=== PATIENT | female | born 1940 | race Caucasian/White ===

== ENCOUNTER 2023-10-11 10:20 | Inpatient (IN) | payer MEDICARE ==
--- NOTE | 2023-10-11 10:55 | ED ---
Fall HPI - General Chief Complaint: Fall Stated Complaint: fall-left ankle injury Time Seen by Provider: 10/11/23 10:55 Source: patient, EMS Mode of arrival: EMS Limitations: physical limitation - History of Present Illness Initial Comments: 83-year-old female presented to the ER via EMS with a chief complaint of left lower extremity injury. Patient states yesterday around 11 AM she was getting up from a chair when her legs gave out on her. She states he was wearing old shoes and believes they may have not had a good travel professional on the ground. Patient lisbeth k she twisted her leg and is now reporting swelling and pain of left ankle and knee. Denies head injury, loss of consciousness or blood thinner use. She denies paresthesias of LLE. She states that extremely painful with flexion of the knee. She denies any dizziness, lightheadedness, chest pain or shortness of breath prior to fall. No other injuries or complaints. - Related Data Home Medications Medication Instructions Recorded Confirmed Cholecalciferol (Vitamin D3) 50 mcg PO DAILY 10/11/23 10/11/23 [Vitamin D3 (50 Mcg = 2000 Iu)] Allergies Allergy/AdvReac Type Severity Reaction Status Date / Time No Known Allergies Allergy Verified 10/11/23 13:25 Review of Systems ROS Statement: Those systems with pertinent positive or pertinent negative responses have been documented in the HPI. ROS Other: All systems not noted in ROS Statement are negative. Past Medical History Past Medical History: No Reported History History of Any Multi-Drug Resistant Organisms: None Reported Past Surgical History: Orthopedic Surgery Past Psychological History: No Psychological Hx Reported Smoking Status: Former smoker Past Alcohol Use History: Daily Past Drug Use History: None Reported General Exam General appearance: alert, in no apparent distress Respiratory exam: Present: normal lung sounds bilaterally. Absent: respiratory distress, wheezes, rales, rhonchi, stridor Cardiovascular Exam: Present: regular rate, normal rhythm, normal heart sounds. Absent: systolic murmur, diastolic murmur, rubs, gallop, clicks Extremities exam: Present: tenderness (Left knee and ankle. Nonpitting edema to foot/ankle and knee. Patient has limited range of motion due to pain. No bruising or wounds present. 2+ bilateral DP pulse. sensation intact) Neurological exam: Present: alert, oriented X3, CN II-XII intact Skin exam: Present: warm, dry, intact, normal color. Absent: rash Course Vital Signs 10/11/23 10/11/23 10:21 13:04 Temperature 98.2 F Pulse Rate 85 79 Respiratory 16 16 Rate Blood Pressure 147/66 154/82 O2 Sat by Pulse 97 97 Oximetry - Reevaluation(s) Reevaluation #1: 10/11/23 14:[address] knee. 10/11/23 15:48 Case discussed with on-call orthopedic, Dr. Vargas, who advised on admission and surgical intervention on 10-13-2023. Reevaluation #2: 10/11/23 15:48 Case discussed with [facility], Dr. Sanz, for medical clearance. Medicine on consult. Medical Decision Making - Medical Decision Making Was pt. sent in by a medical professional or institution (, PA, HISTOTECHNICIAN, urgent care, hospital, or group home...) When possible be specific @ -No Did you speak to anyone other than the patient for history (EMS, parent, family, police, friend...)? What history was obtained from this source @ -No Did you review nursing and triage notes (agree or disagree)? Why? @ -I reviewed and agree with nursing and triage notes Were old charts reviewed (outside hosp., previous admission, EMS record, old EKG, old radiological studies, urgent care reports/EKG's, group home records)? Report findings @ -No old charts were reviewed Differential Diagnosis (chest pain, altered mental status, abdominal pain women, abdominal pain men, vaginal bleeding, weakness, fever, dyspnea, syncope, headache, dizziness, GI bleed, back pain, seizure, CVA, palpatations, mental health, musculoskeletal)? @ -Differential Musculoskeletal: Muscular strain, contusion, ligament sprain, fracture, arthritis, septic arthritis, bursitis, cellulitis, muscle spasm, nerve compression, DVT, arterial occlusion, herpes zoster, electrolyte abnormality, tumor.... This is not meant to be in all inclusive list EKG interpreted by me (3pts min.). @ -None X-rays interpreted by me (1pt min.). @ -Left knee x-ray interpreted by me significant for periprosthetic distal femur fracture. There is also proximal fibula fracture. Left hip and ankle x- ray interpreted me negative for acute process. CT interpreted by me (1pt min.). @ -CT left knee significant for an acute transverse fracture through the distal femoral metaphysis with posterior displacement. Acute comminuted fracture of proximal fibular neck. U/S interpreted by me (1pt. min.). @ -None done What testing was considered but not performed or refused? (CT, X-rays, U/S, labs)? Why? @ -None What meds were considered but not given or refused? Why? @ -None Did you discuss the management of the patient with other professionals (professionals i.e. , PA, HISTOTECHNICIAN, lab, RT, psych nurse, social work supervisor, trucking contractor, teacher, workplace rehabilitation officer, lining caser)? Give summary @ -Yes, case discussed with Dr. Vargas, on-call orthopedic who advised on surgical intervention and admission. Case also discussed with Dr. Sanz, [facility], for medical consult. Was smoking cessation discussed for >3mins.? @ -No Was critical care preformed (if so, how long)? @ -No Were there social determinants of health that impacted care today? How? (Homelessness, low income, unemployed, alcoholism, drug addiction, transportation, low edu. Level, literacy, decrease access to med. care, custodial, rehab)? @ -No Was there de-escalation of care discussed even if they declined (Discuss DNR or withdrawal of care, Hospice)? DNR status @ -No What co-morbidities impacted this encounter? (DM, HTN, Smoking, COPD, CAD, Cancer, CVA, ARF, Chemo, Hep., AIDS, mental health diagnosis, sleep apnea, morbid obesity)? @ -None Was patient admitted / discharged? Hospital course, mention meds given and route, prescriptions, significant lab abnormalities, going to OR and other pertinent info. @ -Admitted. 83-year-old female presented to the ER with a chief complaint of a fall. History and physical exam completed. Vitals stable. Patient no signs of acute distress and nontoxic-appearing. Bilateral lower extremities neurovascular intact. No acute neurological findings on exam. Tenderness to left knee with effusion present. Xrays will be obtained to rule out fracture. Left knee x-ray interpreted by me significant for a distal left femoral fracture. There is also a proximal fibular neck fracture. Left hip AP pelvis and left ankle x-ray interpreted by me negative for acute process. Case discussed with on-call orthopedic, Dr. Vargas, who advised on CT. CT left knee significant transverse fracture through the distal femoral metaphysis with posterior displacement. Acute comminuted fracture along the proximal fibular neck. CT results with discussed with Dr. Vargas who advised on admission and surgical intervention on 10-13-2023. Medicine will be on consult. Case also discussed with Dr. Sanz, [facility], for medicine consult. Patient received IV fluids, Dilaudid and Zofran with improvement of pain in the ER. Results discussed with patient, all questions answered. Patient agreeable for admission. Case discussed with ED attending, Dr. Evans. Undiagnosed new problem with uncertain prognosis? @ -No Drug Therapy requiring intensive monitoring for toxicity (Heparin, Nitro, Insulin, Cardizem)? @ -No Were any procedures done? @ -No Diagnosis/symptom? @ -Periprosthetic distal femur fracture/fibular fracture Acute, or Chronic, or Acute on Chronic? @ -Acute Uncomplicated (without systemic symptoms) or Complicated (systemic symptoms)? @ -Complicated Side effects of treatment? @ -No Exacerbation, Progression, or Severe Exacerbation? @ -No Poses a threat to life or bodily function? How? (Chest pain, [place], [place], pneumonia, PE, COPD, DKA, ARF, appy, cholecystitis, CVA, Diverticulitis, Homicidal, Suicidal, threat to staff... and all critical care pts) @ -No - Radiology Data Radiology results: report reviewed, image reviewed Disposition Clinical Impression: Femoral distal fracture, Fracture, fibula, proximal Disposition: ADMITTED IP TO THIS [facility] Condition: Stable Referrals: None,Stated [Primary Care Provider] - 1-2 days Time of Disposition: 15:48
--- NOTE | 2023-10-11 12:05 | XR ---
EXAMINATION TYPE: XR knee complete LT DATE OF EXAM: 10/11/2023 CLINICAL HISTORY: pain TECHNIQUE: Three views of the left knee are obtained. COMPARISON: None. FINDINGS: Total knee arthroplasty is noted to be in place. There is fracture at the distal left femor al diarrhea metaphyseal region. There is also fracture noted to involve the proximal fibular neck wit h mild comminution suggested. IMPRESSION: Fractures as above.
--- NOTE | 2023-10-11 12:06 | XR ---
EXAMINATION TYPE: XR ankle complete LT DATE OF EXAM: 10/11/2023 COMPARISON: NONE HISTORY: Pain TECHNIQUE: 3 views of the left ankle are submitted for evaluation. FINDINGS: There is no evidence for fracture or dislocation. Ankle mortise is intact. Soft tissue swel ling noted. IMPRESSION: 1. No evidence for acute fracture.
--- NOTE | 2023-10-11 12:07 | XR ---
EXAMINATION TYPE: XR Hip LT and AP Pelvis DATE OF EXAM: 10/11/2023 CLINICAL HISTORY: pain TECHNIQUE: AP and frogleg views of the left hip are obtained. Single view pelvis also obtained. COMPARISON: None. FINDINGS: There is no acute fracture/dislocation evident. The joint space appears within normal li mits. The overlying soft tissue appears unremarkable. IMPRESSION: 1. There is no acute fracture or dislocation.ICD 10 NO FRACTURE, INITIAL EVALUATION
[2023-10-11] MEDS: ONDANSETRON 4 MG/2 ML VIAL IVP STA (13:07)
[2023-10-11] MEDS: HYDROmorphone 0.5 MG/0.5 ML SYRINGE IVP STA (13:10)
--- NOTE | 2023-10-11 15:01 | CT ---
EXAMINATION TYPE: CT knee LT wo con DATE OF EXAM: 10/11/2023 COMPARISON: Left knee x-ray earlier today. HISTORY: fell today CT DLP: 267.8 mGycm Automated exposure control for dose reduction was used. FINDINGS: Metallic hardware from total left knee arthroplasty is identified causing streak artifact making eval uation suboptimal. Seen best on sagittal views there is acute transverse fracture through the distal femoral metaphysis just above the metallic prosthesis with posterior displacement of the distal fract ure fragment. There is moderate sized suprapatellar joint effusion with fat/fluid level seen best on axial images There is acute comminuted fracture through the proximal fibular neck. Adjacent tibia is intact. IMPRESSION: As above. Acute fractures are confirmed.
[2023-10-11] MEDS ORDERED: ONDANSETRON 4 MG/2 ML VIAL IVP PRN (15:38)
[2023-10-11] MEDS ORDERED: HYDROmorphone 0.5 MG/0.5 ML SYRINGE IVP PRN (15:38)
[2023-10-11] MEDS ORDERED: NALOXONE 0.4 MG/ML 1 ML VIAL IV PRN (15:38)
[2023-10-11] MEDS: SODIUM CHLORIDE 0.9% 1,000 ML IV SCH (16:49)
[2023-10-11 21:48] LABS: Basophils % (A) 1 %; Eosinophils # (A) 0.2 k/uL (0-0.7); Eosinophils % (A) 2 %; HCT 38.6 % (34.0-46.0); HGB 12.4 gm/dL (11.4-16.0); Lymphocytes # (A) 0.6 k/uL (1.0-4.8); Lymphocytes % (A) 8 %; MCH 31.9 pg (25.0-35.0); MCHC 32.1 g/dL (31.0-37.0); MCV 99.5 fL (80.0-100.0); Mean Platelet Volume 8.1; Monocytes # (A) 0.6 k/uL (0-1.0); Monocytes % (A) 8 %; Neutrophils % (A) 80 %; Platelet Count 193 k/uL (150-450); RBC 3.88 m/uL (3.80-5.40); RDW 13.1 % (11.5-15.5); WBC 7.4 k/uL (3.8-10.6)
[2023-10-11 21:59] LABS: ALT 14 U/L (4-34); AST 22 U/L (14-36); African American GFR (CKD) 84 (>60 ml/min/1.73 sqM); Albumin 3.3 g/dL (3.5-5.0); Albumin/Globulin Ratio 1.5; Alkaline Phosphatase 77 U/L (38-126); Anion Gap 2 mmol/L; Blood Urea Nitrogen 14 mg/dL (7-17); Calcium 8.5 mg/dL (8.4-10.2); Carbon Dioxide 26 mmol/L (22-30); Chloride 108 mmol/L (98-107); Globulin 2.2 g/dL; Glucose 158 mg/dL (74-99); Non-African American GFR(CKD) 73 (>60 ml/min/1.73 sqM); Potassium 3.9 mmol/L (3.5-5.1); Sodium 136 mmol/L (137-145); Total Bilirubin 0.9 mg/dL (0.2-1.3); Total Protein 5.5 g/dL (6.3-8.2)
--- NOTE | 2023-10-12 00:04 | P.CONS ---
History of Present Illness - Reason for Consult Consult date: 10/11/23 Medical management - Chief Complaint Left knee pain, fall - History of Present Illness Patient is a 83-year-old female without significant past medical history except prior history of smoking presents to ER with complaints of fall and left ankle injury. Patient states that around 11 AM she was getting up from the chair at the dining table and got caught up in the runner rug and fell on her left side. Patient was wearing old shoes and believes they not have good drip. She thinks she twisted her leg and having swelling of the left ankle and knee. She has been having ambulation and flexion of the knee. Denies any recent illnesses or sick contacts. No recent travel. No nausea vomiting abdominal pain or diarrhea. Denies any prior history of coronary artery disease or prior history of stroke. X-ray of the knee showed total knee arthroplasty is noted to be in place. There is fracture of the distal left femoral diaphysis metaphyseal region. There is also fracture noted to involve the proximal fibular neck with mild comminution suggested. X-ray of the pelvis showed no acute fracture or dislocation. X-ray of the ankle showed no evidence for acute fracture. CT of the knee showed metallic hardware from total knee arthroplasty is identified causing streak artifact making evaluation suboptimal. Acute transverse fracture through the distal femoral metaphysis just above the metabol ic process with posterior displacement of the distal fracture fragment. There is moderate-sized suprapatellar joint effusion with fat fluid level. There is a acute comminuted fracture through the proximal fibular neck. Adjacent TBI is intact. Laboratory data showed sodium 136 potassium 3.9 chloride 108, bicarb 26 BUN 14 and creatinine 0.76 and blood sugar 158. Albumin 3.3 and TSH 0.71 5 Review of Systems Constitutional: Patient denies any fever or chills . No generalized weakness or weight loss. Abdomen: Patient denied nausea vomiting and diarrhea and abdominal pain. Cardiovascular: Patient denies any chest pain or short of breath no palpitations. Respiratory: patient denied any cough or sputum production. No shortness of breath Neurologic: Patient denied any numbness or tingling. no headache. Musculoskeletal: Patient denies any complaints of joint swelling or deformity. Left knee pain and swelling Skin: Negative Psychiatric: Negative Endocrine: No heat or cold intolerance. No recent weight gain. Genitourinary: No dysuria or hematuria. All other 14 point ROS negative except the above Past Medical History Past Medical History: No Reported History History of Any Multi-Drug Resistant Organisms: None Reported Past Surgical History: Orthopedic Surgery Past Psychological History: No Psychological Hx Reported Smoking Status: Former smoker Past Alcohol Use History: Daily Past Drug Use History: None Reported Medications and Allergies Home Medications Medication Instructions Recorded Confirmed Type Cholecalciferol (Vitamin D3) 50 mcg PO DAILY 10/11/23 10/11/23 History [Vitamin D3 (50 Mcg = 2000 Iu)] Allergies Allergy/AdvReac Type Severity Reaction Status Date / Time No Known Allergies Allergy Verified 10/11/23 13:25 Physical Exam Vitals: Vital Signs Temp Pulse Resp BP Pulse Ox 10/11/23 17:54 88 16 128/80 97 10/11/23 16:47 85 16 127/77 96 10/11/23 13:04 79 16 154/82 97 10/11/23 10:21 98.2 F 85 16 147/66 97 Intake and Output 10/11/23 10/11/23 10/11/23 06:59 14:59 22:59 Other: Weight 81.647 kg 81.647 kg PHYSICAL EXAMINATION: Patient is lying in the bed comfortably, no acute distress, awake alert and oriented.. HEENT: Normocephalic. Neck is supple. Pupils reactive. Nostrils clear. Oral cavity is moist. Neck reveals no JVD, carotid bruits, or thyromegaly. CHEST EXAMINATION: Trachea is central. Symmetrical expansion. Lung de la o clear to auscultation and percussion. CARDIAC: Normal S1, S2 with no gallops. No murmurs ABDOMEN: Soft. Bowel sounds normal. No organomegaly. No abdominal bruits. Extremities: reveal no edema. No clubbing or cyanosis Neurologically awake, alert, oriented x3 with well-coordinated movements. No focal deficits noted Skin: No rash or skin lesions. Psychiatric: Coperative. Nonsuicidal Musculoskeletal: Left knee swelling and decreased range of motion. Results CBC & Chem 7: 10/11/23 21:30 10/11/23 21:30 Assessment and Plan Assessment: Acute transverse fracture through distal femoral metaphysis just above the metallic process. Acute comminuted fracture through the proximal fibular neck. Suprapatellar joint effusion Status post mechanical fall Hypovolemic hyponatremia Prior history of smoking History of left total knee arthroplasty DVT prophylaxis GI prophylaxis as per primary team Plan: Patient will be continued on pain management, bowel regimen and encourage incentive spirometry. Continue gentle IV hydration and follow-up repeat BMP. Patient does not have any prior history of coronary disease, CKD or history of CVA. Currently patient denies any chest pain or shortness of breath. Patient is at low risk for orthopedic surgery. Will continue to follow closely and further recommendations based on the clinical course. Thank you for your consult.
[2023-10-12 11:07] LABS: BUN/Creat Ratio 14.43 Ratio (12.00-20.00); Blood Urea Nitrogen 10.1 mg/dL (9.0-27.0); Calcium 8.6 mg/dL (8.7-10.3); Chloride 105 mmol/L (96-109); Glucose 147 mg/dL (70-110); Potassium 4.2 mmol/L (3.5-5.5); Sodium 139 mmol/L (135-145)
[2023-10-12 11:42] LABS: Partial Thromboplastin Time 25.3 sec (22.0-30.0); Prothrombin Time 10.5 sec (10.0-12.5)
--- NOTE | 2023-10-12 11:53 | P.HPOR ---
History of Present Illness H&P Date: 10/12/23 The patient is an 83 year old female who presented to our ED yesterday after a ground level fall 2 days ago. She reports tripping and injuring her left leg. She was unable to ambulate. She presented to our ED and has found to have a periprosthetic distal femur fracture and proximal fibula fracture. She lives with her partner. She had bilateral knee replacements done in the remote past in [place]. She lives 6 months of the year in [place]. Past Medical History Past Medical History: No Reported History History of Any Multi-Drug Resistant Organisms: None Reported Past Surgical History: Orthopedic Surgery Past Psychological History: No Psychological Hx Reported Smoking Status: Former smoker Past Alcohol Use History: Daily Past Drug Use History: None Reported Medications and Allergies Home Medications Medication Instructions Recorded Confirmed Type Cholecalciferol (Vitamin D3) 50 mcg PO DAILY 10/11/23 10/11/23 History [Vitamin D3 (50 Mcg = 2000 Iu)] Allergies Allergy/AdvReac Type Severity Reaction Status Date / Time No Known Allergies Allergy Verified 10/11/23 13:25 Physical Examination Resting comfortably in bed. No apparent distress. Her head is NC/AT. She demonstrates non-labored breathing with symmetric chest expansion. Her b/l UE and right LE are without deformities. A focused exam of the left leg was conducted. There is an obvious deformity of her left knee, but no open wounds. There is a well healed anterior knee incision from prior TKA. Her thigh and calf are soft. She has a palpable DP and PT pulse. Results Xrays and CT scan of the left knee show a low-periprosthetic femur fracture and proximal fibula fracture. There is limited bone around the prosthetic. There do not appear to be any fractures around the tibial implant. The patient has very poor bone quality. - Labs Labs: Abnormal Lab Results - Last 24 Hours (Table) 10/11/23 10/11/23 10/12/23 Range/Units 21:30 21:30 07:57 Lymphocytes # 0.6 L (1.0-4.8) k/uL Sodium 136 L (137-145) mmol/L Chloride 108 H (98-107) mmol/L Glucose 158 H 147 H (74-99) mg/dL Calcium 8.6 L (8.7-10.3) mg/dL Total Protein 5.5 L (6.3-8.2) g/dL Albumin 3.3 L (3.5-5.0) g/dL H & H 10/11/23 Range/Units 21:30 Hgb 12.4 (11.4-16.0) gm/dL Hct 38.6 (34.0-46.0) % Result Diagrams: 10/11/23 21:30 10/12/23 07:57 Assessment and Plan Assessment: Left periprosthetic distal femur fracture Plan: I met with the patient to discuss treatment options this morning. Given her age, poor bone quality and very low fracture with limited bone stock on the femoral i mplant, I recommended a revision TKA with a distal femoral replacing hinge. We discussed the procedure at length. She understands the potential risks and that she is at an elevated risk of having a complication due to her age and poor bone quality. We will plan on surgery later this afternoon. She is to remain NPO and on bedrest until surgery. Time with Patient: Greater than 30
[2023-10-12] MEDS: CYANOCOBALAMIN 1,000 MCG/ML 1 ML VIAL IM ONE (12:52)
[2023-10-12] MEDS: IV FLUID CONTINUATION 1,000 ML IV ONE (13:42)
[2023-10-12] MEDS: LACTATED RINGERS 1,000 ML BAG IV STA (13:42)
[2023-10-12] MEDS: DEXAMETHASONE SOD PHOSPHATE 4 MG/ML 1 ML VIAL IVP STA (14:05)
[2023-10-12] MEDS: ONDANSETRON 4 MG/2 ML VIAL IVP STA (14:05)
[2023-10-12] MEDS ORDERED: TRANEXAMIC 1,000 MG/100ML-NACL 1,000 MG in SALINE 1 100ML.BAG IVPB PRN (14:35)
[2023-10-12] MEDS ORDERED: NEOSTIGMINE 1 MG/ML 10 ML VIAL ONE (15:00)
[2023-10-12] MEDS ORDERED: GLYCOPYRROLATE 0.2 MG/ML 2 ML VIAL ONE (15:00)
[2023-10-12] MEDS ORDERED: ROCURONIUM 10 MG/ML (5 ML VIAL) IV ONE (15:00)
[2023-10-12] MEDS ORDERED: fentaNYL (PF) 50 MCG/ML 2 ML AMP ONE (15:00)
[2023-10-12] MEDS ORDERED: LIDOCAINE 1% INJ 10MG/ML (20 ML MDV) ONE (15:00)
[2023-10-12] MEDS ORDERED: PROPOFOL 10 MG/ML 20 ML VIAL IV ONE (15:00)
[2023-10-12] MEDS ORDERED: SUCCINYLCHOLINE CHLORIDE 200 MG/10 ML VIAL IV ONE (15:00)
[2023-10-12] MEDS ORDERED: PHENYLEPHRINE 10 MG/ML VIAL ONE (15:00)
[2023-10-12] MEDS: VANCOMYCIN 1,000 MG VIAL MISCELLANE ONE (17:47)
[2023-10-12] MEDS: BUPIVACAINE (PF) 0.5% 30 ML VIAL SQ ONE (17:50)
[2023-10-12] MEDS ORDERED: NALOXONE 0.4 MG/ML 1 ML VIAL IV PRN (18:50)
[2023-10-12] MEDS ORDERED: ONDANSETRON 4 MG/2 ML VIAL IVP PRN (18:50)
[2023-10-12] MEDS ORDERED: MAGNESIUM HYDROXIDE 2,400 MG/30 ML CUP PO PRN (18:50)
[2023-10-12] MEDS ORDERED: HYDROcodone/APAP 10-325MG 1 EACH TAB PO PRN (18:50)
[2023-10-12] MEDS ORDERED: hydrOXYzine pamoate 25 MG CAP PO PRN (18:50)
[2023-10-12] MEDS ORDERED: NA PHOS,M-B/NA PHOS,DI-BA 133 ML ENEMA RECTAL PRN (18:50)
[2023-10-12] MEDS ORDERED: HYDROmorphone 0.5 MG/0.5 ML SYRINGE IVP PRN ×3 (18:50)
[2023-10-12] MEDS ORDERED: bisacodyL 10 MG SUPP RECTAL PRN (18:50)
--- NOTE | 2023-10-12 19:10 | P.OP ---
Date of Procedure: 10/12/23 Preoperative Diagnosis: 1. Comminuted left distal periprosthetic femur fracture 2. Left proximal fibula fracture 3. Osteoporosis Postoperative Diagnosis: 1. Comminuted left periprosthetic distal femur fracture with loose femoral component 2. left proximal fibula fracture 3. Osteoporosis Procedure(s) Performed: 1. Left revision total knee replacement (distal femoral replacing hinge) for treatment of unsalvageable periprosthetic distal femur fracture 2. Application of negative pressure incisional wound VAC, left knee, less than 50 cm, incision measuring 15 cm Modifier 22 for increased procedural complexity: Justification: This operation required significantly more time, work, and procedural complexity than a standard primary or revision total joint arthroplasty. Specifically the prior traumatic changes and or surgical procedure left a significantly altered surgical field with resultant scar tissue, adhesions, and altered anatomy that required a longer and more difficult and complex surgical dissection. This patient required: Extensile exposure requiring meticulous and extensive debridement due to prior failed surgery and contractures Technically demanding removal of prior hardware Significantly prolonged operative time All of the above result in a physically and mentally challenging operative procedure that in my professional opinion necessitates a 30% increase above standard the schedule Implants: 1. [place] GMRS distal femoral replacement with 13x80 cemented stem 2. Michelle GMRS SM-2 tibial baseplate with cemented stem 3. Michelle MRH 10-mm tibial insert Anesthesia: MITALI Surgeon: Moris Vargas [employer] Receiver #1: Nuno Carter Estimated Blood Loss (ml): 200 IV fluids (ml): 800 Urine output (ml): 100 Pathology: other Condition: stable Disposition: PACU Indications for Procedure: The patient is a very pleasant relatively healthy 83-year-old female who sustained a ground-level fall 2 days ago resulting in pain and deformity in her left knee. She presented to our ER yesterday and was found to have a comminuted periprosthetic femur fracture and left proximal fibula fracture. X-rays and a computed tomography scan were obtained in the emergency department. The patient was admitted under my care and internal medicine was consulted for preoperative clearance. I met with the patient and reviewed all of her imaging. She had a comminuted very low distal periprosthetic femur fracture with minimal bone attached the femoral implant. Her bone quality also appeared to be exceedingly poor. Given her age, fracture characteristics, and likely unstable implant I recommendation was to proceed with a distal femoral replacing hinge. We discussed the procedure at length. The patient had realistic expectations after our discussion. Risks discussed include but certainly not limited to risks from anesthesia, superficial or deep infection, periprosthetic joint infection, stiffness, instability, aseptic loosening of her implants, fracture, DVT, PE, other medical complications, and inability to regain preinjury level of function, and possibly loss of life or limb. The patient understands and acknowledges potential complications were also understanding that less common complications are possible. She provided both her verbal and written consent to go forward with surgery. Operative Findings: The femoral implant was grossly loose. There is a comminuted fracture distally with no bone attached the femoral implant. The patient had exceedingly poor bone quality in both the femur and tibia. Due to her bone quality I elected to use cemented stems. Description of Procedure: the patient was identified in preoperative holding and the correct left leg was marked with my initials. I reviewed the consent form with the patient and all of her questions were answered. The patient was then brought back to the operating room. She was positioned on the OR table where general anesthetic, preoperative antibiotics, and tranexamic acid were given. A tourniquet was applied to the proximal aspect of the left leg. The leg was positioned for surgery with a bolster and leg padilla. The contralateral right leg was secured to the OR table with foam and tape. A nonsterile 10:15 drape was applied over the leg and a presurgical scrub was performed with a chlorhexidine scrub brush. The left leg was then prepped and draped in the standard sterile fashion. I to starting surgery timeout was performed identifying the correct patient, operative extremity, and procedure. The patient's leg was then elevated, exsanguinated with an Esmarch bandage, and the tourniquet was inflated to 250 mmHg. I began by making a straight anterior incision over the knee using her prior scar. The incision was extended proximally and distally to allow application of normal tissue planes. Once the suprafascial fascia was incised I elevated subfascial flaps. A standard medial parapatellar arthrotomy was created. Immediately upon entering the joint there was a large hemarthrosis consistent with an acute fracture. The knee joint was then irrigated using pulsatile lavage. A posteromedial release was performed to allow placement of retractors. On inspection there is a highly comminuted fracture of the distal femur. The femoral implant was grossly loose and was easily removed and handed off to the back table. Due to the patient's fracture, prior surgery, and the habitus great care was taken and there was a difficult exposure requiring extra time. The collateral ligaments and posterior soft tissue were removed from the remaining distal femur and a freshen up cut was made with a sagittal saw. The patient was noted to have exceedingly poor bone quality. The polyethylene liner was then easily removed.retractors were placed around the tibia to expose the tibial baseplate. Care was taken to not inadvertently damage the patellar tendon or extensor mechanism. Using a combination of sagittal and reciprocating saws the interface between the implant cement was carefully debonded. Using a bone tamp and a mallet the tibial implant was easily removed without any bone loss. A real was used to break the cement pedestal distally. Back scratching reamers were then used to remove cement from within the tibial canal. I then reamed until I had a solid fit. An extra medullary guide was placed over the reamer and a freshen up cut of the proximal tibia was made creating a flat surface. A trial stem and baseplate were placed into the tibia. The proximal femur was then exposed. I reamed until I had an appropriately sized reamer. I then placed a trial distal femur and stem. The knee felt stable and the leg length seemed to be even. All trial implants were then removed. I cemented in stages. The wound was thoroughly irrigated. A cement restrictor was placed at a depth just distal to the stem of the tibial implant. Using a cement gun and antibiotic impregnated cement the tibia was pressurized with cement and the tibial implant was gently tapped into place and held in position confirming rotation with the tibial tubercle until the cement had fully set. Once the cement had set attention was then turned to the femur. The canal was thoroughly irrigated with pulsatile lavage. A cement restrictor was placed at a depth just proximal to the end of the stem. I verified that the marking on the femoral shaft corresponding to the appropriate rotation was visible. Using a cement gun cement was pressurized into the femoral canal in a retrograde fashion. The cement was then pressurized into the femoral canal. Once the cement had reached appropriate consistency the stem was introduced into the cement mantle taking care to guide the femoral implant into appropriate rotation. The implant was held until the cement had fully set. The final components of the hands were then placed and the femoral and tibial implants were linked. The knee fully extended and flexed. The patella tracked appropriately. At this point the tourniquet was let down and all bleeders were controlled. The wound was thoroughly irrigated with pulsatile lavage and then soaked for 3 minutes with a dilute Betadine rinse. The knee was thoroughly irrigated with pulsatile lavage. The knee was then rinsed with Irrisept. Local anesthetic was injected around the surgical field. There did not appear to be any gross bleeders. The wound was irrigated with the remaining contents of the 3 L bag using pulsatile lavage. 2 g of vancomycin powder was placed deep within the wound. The wound was then closed in layers. The skin incision was reinforced with 3-0 nylon horizontal mattress sutures. After the incision was closed and incisional wound VAC was applied, hooked up to canister, and had an excellent seal. The leg was wrapped in an Pieter wrap and then placed in a knee immobilizer. The patient was awoken from her anesthetic, transferred from the OR table to a gurney, and brought to the recovery room having tolerated the procedure well. Nuno Carter PA-C was required as a skilled resident care assistant due to the complexity of surgery for patient positioning, draping, retraction, removal of implants, placement of implants, closure of wound, and application of dressing. Plan: The patient is going to be admitted under my care. She will receive 2 doses of postoperative antibiotics and will then take doxycycline 100 mg twice a day until her incision heals. DVT prophylaxis with aspirin 81 mg twice a day. The patient can weight-bear as tolerated on her left leg. We will remove her knee immobilizer in 48 hours. Internal medicine for perioperative medical management. The patient will likely need discharge to a fpc facility or rehab facility.
--- NOTE | 2023-10-12 19:44 | XR ---
PROCEDURE: XR knee limited LT - 3V DATE AND TIME: 10/12/2023 7:31 PM CLINICAL INDICATION: PHH; Evaluation for Postop abnormality and alignment TECHNIQUE: Portable AP and 2 crosstable lateral views were obtained. COMPARISON: 10/11/2023 radiographs FINDINGS / IMPRESSION: Postoperative prosthesis anatomic positioning and alignment documented. Proximal fibular shaft fracture redemonstrated.
[2023-10-12] MEDS: SODIUM CHLORIDE 0.9% 1,000 ML IV SCH (19:52)
[2023-10-12] MEDS: ASPIRIN 81 MG PO SCH (20:42)
[2023-10-12] MEDS: SENNOSIDES-DOCUSATE SODIUM 1 EACH TAB PO SCH (20:42)
[2023-10-13] MEDS: CYANOCOBALAMIN 500 MCG TAB PO SCH (09:56)
[2023-10-13] MEDS: HYDROcodone/APAP 5-325MG 1 EACH TAB PO PRN (10:02)
[2023-10-13 10:26] LABS: Basophils # (A) 0.02 X 10*3/uL (0.00-0.10); Basophils % (A) 0.2 %; Eosinophils # (A) 0.01 X 10*3/uL (0.04-0.35); Eosinophils % (A) 0.1 %; HCT 32.9 % (37.2-46.3); HGB 10.8 g/dL (12.0-15.0); Lymphocytes # (A) 0.73 X 10*3/uL (0.90-5.00); Lymphocytes % (A) 6.3 %; MCH 31.9 pg (27.0-32.0); MCHC 32.8 g/dL (32.0-37.0); MCV 97.1 FL (80.0-97.0); Mean Platelet Volume 11.1 FL (9.5-12.2); Monocytes % (A) 9.5 %; NRBC Per 100 WBC 0 X 10*3/uL (0.00-0.01); Neutrophils # (A) 9.64 X 10*3/uL (1.80-7.70); Neutrophils % (A) 83.1 %; Platelet Count 189 X 10*3/uL (140-440); RBC 3.39 X 10*6/uL (4.10-5.20); RDW 13.5 % (11.5-14.5); WBC 11.59 X 10*3/uL (4.50-10.00)
--- NOTE | 2023-10-13 11:28 | P.PN ---
Subjective she is doing well this morning. She has some discomfort in her left leg but is otherwise without complaints. Objective - Vital Signs Vital signs: Vital Signs Temp 98.2 F 10/13/23 07:13 Pulse 83 10/13/23 07:13 Resp 18 10/13/23 07:13 BP 122/72 10/13/23 07:13 Pulse Ox 93 L 10/13/23 07:13 FiO2 Intake & Output 10/12/23 10/13/23 10/13/23 18:59 06:59 18:59 Intake Total 1700 Output Total 200 1075 Balance 1500 -1075 Weight 81 kg Intake: IV 1700 Output: Urine 0 1075 Estimated Blood Loss 200 Other: Voiding Method Indwelling Catheter Indwelling Catheter Indwelling Catheter - Exam incision is sitting up at bedside in the chair. She is alert and able to answer questions. A focused exam of the left lower extremity was conducted. She is in a knee immobilizer and her incisional wound VAC is a good seal. She is able to actively plantarflex and dorsiflex her ankle and her toes. Her foot is warm and well perfused with good capillary refill. - Labs CBC & Chem 7: 10/13/23 06:01 10/12/23 07:57 Labs: Abnormal Lab Results - Last 24 Hours (Table) 10/13/23 Range/Units 06:01 WBC 11.59 H (4.50-10.00) X 10*3/uL RBC 3.39 L (4.10-5.20) X 10*6/uL Hgb 10.8 L (12.0-15.0) g/dL Hct 32.9 L (37.2-46.3) % MCV 97.1 H (80.0-97.0) FL Immature Gran # 0.09 H (0.00-0.04) X 10*3/uL Neutrophils # 9.64 H (1.80-7.70) X 10*3/uL Lymphocytes # 0.73 L (0.90-5.00) X 10*3/uL Monocytes # 1.10 H (0.20-1.00) X 10*3/uL Eosinophils # 0.01 L (0.04-0.35) X 10*3/uL Assessment and Plan Assessment: postoperative day #1 status post left distal femoral replacing hinge for periprosthetic distal femur fracture Plan: 1. Weightbearing as tolerated on the operative extremity. Up with assistance and a walker. discontinue knee immobilizer tomorrow 2. DVT prophylaxis with aspirin 81 mg twice a day. Post op antibiotics - 2 doses of ancef followed by doxycycline until her incision heals due to revision surgery. 3. Physical therapy for gait training and mobilization 4. Internal medicine for perioperative medical management 5. PT for gait training 6. Disposition: Discharge planning for rehab or nursing home facility in progress.
--- NOTE | 2023-10-13 15:52 | P.CONS ---
History of Present Illness - Reason for Consult Consult date: 10/13/23 - History of Present Illness The patient is an 83 year old female who presented to ED 10/11/23 after a ground level fall 2 days ago. She reports tripping and injuring her left leg. She was unable to ambulate. She was found to have a periprosthetic distal femur fracture and proximal fibula fracture. She lives with her partner. She had bilateral knee replacements done in the remote past. She underwent IMN of left distal femur fx with Dr. Vargas on 10/12/23. Pt lives with her spouse in a 1 story house with 2 steps into house. She didnt use an AD prior to this. She did not need any assistance. Currently she is doing well. Her main barrier is pain. Her last BM was Monday. She denies any c/p or sob. Past Medical History Past Medical History: No Reported History History of Any Multi-Drug Resistant Organisms: None Reported Past Surgical History: Orthopedic Surgery Past Psychological History: No Psychological Hx Reported Smoking Status: Former smoker Past Alcohol Use History: Daily Past Drug Use History: None Reported Medications and Allergies Home Medications Medication Instructions Recorded Confirmed Type Cholecalciferol (Vitamin D3) 50 mcg PO DAILY 10/11/23 10/11/23 History [Vitamin D3 (50 Mcg = 2000 Iu)] Allergies Allergy/AdvReac Type Severity Reaction Status Date / Time No Known Allergies Allergy Verified 10/11/23 13:25 Physical Exam Vitals: Vital Signs Temp Pulse Resp BP Pulse Ox 10/13/23 14:00 98.5 F 84 17 130/58 99 10/13/23 07:13 98.2 F 83 18 122/72 93 L 10/13/23 02:00 97.5 F L 80 16 109/65 94 L 10/12/23 23:50 97.8 F 75 16 118/65 93 L 10/12/23 21:50 73 18 111/68 96 10/12/23 20:50 98.2 F 73 18 119/70 96 10/12/23 20:00 18 10/12/23 19:50 76 18 127/78 98 10/12/23 19:31 74 16 116/55 94 L 10/12/23 19:16 80 16 136/60 93 L 10/12/23 19:01 77 16 127/60 93 L 10/12/23 18:46 97 F L 99 16 126/74 93 L Intake and Output 10/13/23 10/13/23 10/13/23 06:59 14:59 22:59 Output Total 275 Balance -275 Output: Urine 275 Other: Voiding Method Indwelling Catheter General: Well appearing, well nourished, in no distress. Head: Normocephalic, atraumatic Eyes: EOM intact, PERRL Neck: Supple, without lesions Skin: No rash, or skin lesion in exposed areas of skin CV:No cyanosis or peripheral edema Respiratory: No audible wheezing or increased respiratory effort Abdomen: Non-distended and without guarding. Extremities:No cyanosis or edema, dorsalis pedis pulses intact b/l Musculoskeletal: MMT UE 5/5, RLE 5/5, LLE HF 3/5 at least limited due to pain, DF 5/5 b/l LLE in knee immobilizer. Results CBC & Chem 7: 10/13/23 06:01 10/12/23 07:57 Labs: Abnormal Lab Results - Last 24 Hours (Table) 10/13/23 Range/Units 06:01 WBC 11.59 H (4.50-10.00) X 10*3/uL RBC 3.39 L (4.10-5.20) X 10*6/uL Hgb 10.8 L (12.0-15.0) g/dL Hct 32.9 L (37.2-46.3) % MCV 97.1 H (80.0-97.0) FL Immature Gran # 0.09 H (0.00-0.04) X 10*3/uL Neutrophils # 9.64 H (1.80-7.70) X 10*3/uL Lymphocytes # 0.73 L (0.90-5.00) X 10*3/uL Monocytes # 1.10 H (0.20-1.00) X 10*3/uL Eosinophils # 0.01 L (0.04-0.35) X 10*3/uL Assessment and Plan Assessment: Left distal femoral replacing hinge for periprosthetic distal femur fracture -WBAT -Continue PT / OT Post operative pain -continue norco 5-325 mg q4h prn -make sure adequate bowel program while on opioids- senna 2 tabs qhs,colace 100 mg bid -DC all IV pain meds before d/c to IPR. Dispo: Therapy reviewed: Transfers min A 2 ppl Sit to stand mod A x2 Pt having alot of pain and difficulty bearing weight on left leg She would benefit from IPR stay for best chance of good recovery and to prevent re-injury. after hospital stay to continue to work on gait training so she is safe for dc home. She is at high risk for morbidity given her age and mechanism of injury.She is highly motivated and has good family support. She will do well from a short stay.
--- NOTE | 2023-10-14 07:37 | P.PN ---
Subjective Progress Note Date: 10/14/23 The patient is doing well this morning. She reports she had some pain and difficulty with ambulating yesterday. She is otherwise without complaints. She is sitting up at bedside. She denies chest pain or shortness of breath. Objective - Vital Signs Vital signs: Vital Signs Temp 98 F 10/14/23 01:48 Pulse 95 10/14/23 01:48 Resp 17 10/14/23 01:48 BP 131/80 10/14/23 01:48 Pulse Ox 90 L 10/14/23 01:48 FiO2 Intake & Output 10/13/23 10/14/23 10/14/23 18:59 06:59 18:59 Output Total 600 475 Balance -600 -475 Output: Urine 600 475 Other: Voiding Method Indwelling Catheter Indwelling Catheter - Exam The patient is sitting up in a chair at bedside. Her knee immobilizer and Pieter wrap were taken off the left leg. On inspection there is no intact incisional wound VAC with good seal. There is mild swelling throughout the leg. There is some bruising around the knee. She is able to actively plantarflex and dorsiflex her ankle and her toes. - Labs CBC & Chem 7: 10/13/23 06:01 10/12/23 07:57 Labs: Abnormal Lab Results - Last 24 Hours (Table) 10/13/23 Range/Units 06:01 WBC 11.59 H (4.50-10.00) X 10*3/uL RBC 3.39 L (4.10-5.20) X 10*6/uL Hgb 10.8 L (12.0-15.0) g/dL Hct 32.9 L (37.2-46.3) % MCV 97.1 H (80.0-97.0) FL Immature Gran # 0.09 H (0.00-0.04) X 10*3/uL Neutrophils # 9.64 H (1.80-7.70) X 10*3/uL Lymphocytes # 0.73 L (0.90-5.00) X 10*3/uL Monocytes # 1.10 H (0.20-1.00) X 10*3/uL Eosinophils # 0.01 L (0.04-0.35) X 10*3/uL Assessment and Plan Assessment: Postoperative day #2 status post distal femoral placing hinge for nonsalvageable periprosthetic distal femur fracture Plan: Continue treatment as outlined yesterday. Her knee immobilizer was removed and is not needed at this point. I would encourage continued attempts at physical therapy and mobilization. DVT prophylaxis. Low-dose antibiotic suppression. Discharge planning.
[2023-10-14 07:58] LABS: African American GFR (CKD) >90 (>60 ml/min/1.73 sqM); Anion Gap 0 mmol/L; Blood Urea Nitrogen 10 mg/dL (7-17); Calcium 8.4 mg/dL (8.4-10.2); Carbon Dioxide 27 mmol/L (22-30); Chloride 105 mmol/L (98-107); Glucose 130 mg/dL (74-99); Non-African American GFR(CKD) 87 (>60 ml/min/1.73 sqM); Potassium 3.9 mmol/L (3.5-5.1); Sodium 132 mmol/L (137-145)
[2023-10-14] MEDS: DOXYCYCLINE 100 MG CAP PO SCH (08:26)
[2023-10-15 10:59] LABS: Basophils # (A) 0.04 X 10*3/uL (0.00-0.10); Basophils % (A) 0.6 %; Eosinophils # (A) 0.27 X 10*3/uL (0.04-0.35); Eosinophils % (A) 3.8 %; HCT 31.7 % (37.2-46.3); HGB 10.2 g/dL (12.0-15.0); Lymphocytes # (A) 0.83 X 10*3/uL (0.90-5.00); Lymphocytes % (A) 11.6 %; MCH 30.9 pg (27.0-32.0); MCHC 32.2 g/dL (32.0-37.0); MCV 96.1 FL (80.0-97.0); Mean Platelet Volume 11.4 FL (9.5-12.2); Monocytes # (A) 0.95 X 10*3/uL (0.20-1.00); Monocytes % (A) 13.3 %; NRBC Per 100 WBC 0 X 10*3/uL (0.00-0.01); Neutrophils # (A) 5.01 X 10*3/uL (1.80-7.70); Neutrophils % (A) 70.1 %; Platelet Count 210 X 10*3/uL (140-440); RDW 13.1 % (11.5-14.5); WBC 7.14 X 10*3/uL (4.50-10.00)
--- NOTE | 2023-10-15 15:42 | P.PN ---
Subjective Patient seen earlier today. Complaining of mild pain at rest and more pain when ambulating. Denies chest pain or shortness of breath. Objective - Vital Signs Vital signs: Vital Signs Temp 97.9 F 10/15/23 07:07 Pulse 93 10/15/23 08:00 Resp 18 10/15/23 08:00 BP 150/78 10/15/23 07:07 Pulse Ox 93 L 10/15/23 07:07 FiO2 Intake & Output 10/14/23 10/15/23 10/15/23 18:59 06:59 18:59 Output Total 2300 1750 1600 Balance -2300 -1750 -1600 Output: Urine 2300 1750 1600 Other: Voiding Method Indwelling Catheter Indwelling Catheter Indwelling Catheter # Bowel Movements 1 - Exam Resting comfortably in bed. No apparent distress. Wound VAC intact with good seal. Mild swelling in the leg. Moves ankle and foot up/down. - Labs CBC & Chem 7: 10/15/23 05:53 10/14/23 07:10 Labs: Abnormal Lab Results - Last 24 Hours (Table) 10/15/23 Range/Units 05:53 RBC 3.30 L (4.10-5.20) X 10*6/uL Hgb 10.2 L (12.0-15.0) g/dL Hct 31.7 L (37.2-46.3) % Lymphocytes # 0.83 L (0.90-5.00) X 10*3/uL Assessment and Plan Assessment: POD #3 s/p left DFR for periprosthetic distal femur fracture. Plan: Continue to mobilize as able. Patient no longer needs knee immobilizer. Leave wound VAC in place. Continue ASA for DVT prophylaxis and doxycycline for low dose antibiotic suppression. Anticipate discharge to rehab in next 1-2 days.
--- NOTE | 2023-10-16 00:34 | P.PN ---
Subjective Progress Note Date: 10/12/23 Patient is a 83-year-old female without significant past medical history except prior history of smoking presents to ER with complaints of fall and left ankle injury. Patient states that around 11 AM she was getting up from the chair at the dining table and got caught up in the runner rug and fell on her left side. Patient was wearing old shoes and believes they not have good drip. She thinks she twisted her leg and having swelling of the left ankle and knee. She has been having ambulation and flexion of the knee. Denies any recent illnesses or sick contacts. No recent travel. No nausea vomiting abdominal pain or diarrhea. Denies any prior history of coronary artery disease or prior history of stroke. X-ray of the knee showed total knee arthroplasty is noted to be in place. There is fracture of the distal left femoral diaphysis metaphyseal region. There is also fracture noted to involve the proximal fibular neck with mild comminution suggested. X-ray of the pelvis showed no acute fracture or dislocation. X-ray of the ankle showed no evidence for acute fracture. CT of the knee showed metallic hardware from total knee arthroplasty is identified causing streak artifact making evaluation suboptimal. Acute transverse fracture through the distal femoral metaphysis just above the met abolic process with posterior displacement of the distal fracture fragment. There is moderate-sized suprapatellar joint effusion with fat fluid level. There is a acute comminuted fracture through the proximal fibular neck. Adjacent TBI is intact. Laboratory data showed sodium 136 potassium 3.9 chloride 108, bicarb 26 BUN 14 and creatinine 0.76 and blood sugar 158. Albumin 3.3 and TSH 0.71 5 10/12/2023 Patient is currently lying in the bed. Awake alert and oriented. Complains of left lower extremity pain. Otherwise patient is scheduled for surgery today. No complaints of nausea or vomiting. No cough or sputum production. Laboratory data showed sodium 139 potassium 4.2 chloride 105 bicarb is 23.0 BUN 10.1 and creatinine 0.7 and blood sugar 147. B12 201 and TSH within normal limits. Patient was started on B12 supplementation. Current medications reviewed. Objective - Vital Signs Vital signs: Vital Signs Temp 97.3 F L 10/12/23 07:22 Pulse 89 10/12/23 08:00 Resp 18 10/12/23 08:00 BP 118/70 10/12/23 07:22 Pulse Ox 93 L 10/12/23 07:22 FiO2 Intake & Output 10/11/23 10/12/23 10/12/23 18:59 06:59 18:59 Output Total 350 Balance -350 Weight 81.647 kg Output: Urine 350 Uretheral (Rodríguez) 350 Other: Voiding Method Indwelling Catheter - Exam PHYSICAL EXAMINATION: Patient is lying in the bed comfortably, no acute distress, awake alert and oriented.. HEENT: Normocephalic. Neck is supple. Pupils reactive. Nostrils clear. Oral cavity is moist. Neck reveals no JVD, carotid bruits, or thyromegaly. CHEST EXAMINATION: Trachea is central. Symmetrical expansion. Lung de la o clear to auscultation and percussion. CARDIAC: Normal S1, S2 with no gallops. No murmurs ABDOMEN: Soft. Bowel sounds normal. No organomegaly. No abdominal bruits. Extremities: reveal no edema. No clubbing or cyanosis Neurologically awake, alert, oriented x3 with well-coordinated movements. No focal deficits noted Skin: No rash or skin lesions. Psychiatric: Coperative. Nonsuicidal Musculoskeletal: Left knee swelling and decreased range of motion. - Labs CBC & Chem 7: 10/15/23 05:53 10/14/23 07:10 Labs: Abnormal Lab Results - Last 24 Hours (Table) 10/11/23 10/11/23 10/12/23 Range/Units 21:30 21:30 07:57 Lymphocytes # 0.6 L (1.0-4.8) k/uL Sodium 136 L (137-145) mmol/L Chloride 108 H (98-107) mmol/L Glucose 158 H 147 H (74-99) mg/dL Calcium 8.6 L (8.7-10.3) mg/dL Total Protein 5.5 L (6.3-8.2) g/dL Albumin 3.3 L (3.5-5.0) g/dL Assessment and Plan Assessment: Acute transverse fracture through distal femoral metaphysis just above the metallic process. Patient is scheduled for surgery today. Acute comminuted fracture through the proximal fibular neck. Suprapatellar joint effusion Status post mechanical fall Vitamin B12 deficiency Hypovolemic hyponatremia. Improved Prior history of smoking History of left total knee arthroplasty DVT prophylaxis GI prophylaxis as per primary team Plan: Patient will be continued on pain management, bowel regimen and encourage incentive spirometry. Continue gentle IV hydration and follow-up repeat BMP. Patient does not have any prior history of coronary disease, CKD or history of CVA. Currently patient denies any chest pain or shortness of breath. Patient is at low risk for orthopedic surgery. Will continue to follow closely and further recommendations based on the clinical course.
--- NOTE | 2023-10-16 00:37 | P.PN ---
Subjective Progress Note Date: 10/13/23 Patient is a 83-year-old female without significant past medical history except prior history of smoking presents to ER with complaints of fall and left ankle injury. Patient states that around 11 AM she was getting up from the chair at the dining table and got caught up in the runner rug and fell on her left side. Patient was wearing old shoes and believes they not have good drip. She thinks she twisted her leg and having swelling of the left ankle and knee. She has been having ambulation and flexion of the knee. Denies any recent illnesses or sick contacts. No recent travel. No nausea vomiting abdominal pain or diarrhea. Denies any prior history of coronary artery disease or prior history of stroke. X-ray of the knee showed total knee arthroplasty is noted to be in place. There is fracture of the distal left femoral diaphysis metaphyseal region. There is also fracture noted to involve the proximal fibular neck with mild comminution suggested. X-ray of the pelvis showed no acute fracture or dislocation. X-ray of the ankle showed no evidence for acute fracture. CT of the knee showed metallic hardware from total knee arthroplasty is identified causing streak artifact making evaluation suboptimal. Acute transverse fracture through the distal femoral metaphysis just above the met abolic process with posterior displacement of the distal fracture fragment. There is moderate-sized suprapatellar joint effusion with fat fluid level. There is a acute comminuted fracture through the proximal fibular neck. Adjacent TBI is intact. Laboratory data showed sodium 136 potassium 3.9 chloride 108, bicarb 26 BUN 14 and creatinine 0.76 and blood sugar 158. Albumin 3.3 and TSH 0.71 5 10/12/2023 Patient is currently lying in the bed. Awake alert and oriented. Complains of left lower extremity pain. Otherwise patient is scheduled for surgery today. No complaints of nausea or vomiting. No cough or sputum production. Laboratory data showed sodium 139 potassium 4.2 chloride 105 bicarb is 23.0 BUN 10.1 and creatinine 0.7 and blood sugar 147. B12 201 and TSH within normal limits. Patient was started on B12 supplementation. 10/13/2023 Patient is s/p surgery postoperative day 1 Status post left revision total knee arthroplasty and application of negative pressure incision wound VAC. Patient is lying in the bed. Complains of left leg pain. No numbness or tingling. No nausea or vomiting. No cough or sputum production. Laboratory data showed WBC 11.5 hemoglobin 10.8 and platelets 189 Other laboratory reviewed. Current medications reviewed. Objective - Vital Signs Vital signs: Vital Signs Temp 98.3 F 10/13/23 19:41 Pulse 106 H 10/13/23 19:41 Resp 19 10/13/23 19:41 BP 137/78 10/13/23 19:41 Pulse Ox 92 L 10/13/23 19:41 FiO2 Intake & Output 10/13/23 10/13/23 10/14/23 06:59 18:59 06:59 Output Total 1075 600 Balance -1075 -600 Output: Urine 1075 600 Other: Voiding Method Indwelling Catheter Indwelling Catheter - Exam PHYSICAL EXAMINATION: Patient is lying in the bed comfortably, no acute distress, awake alert and oriented.. HEENT: Normocephalic. Neck is supple. Pupils reactive. Nostrils clear. Oral cavity is moist. Neck reveals no JVD, carotid bruits, or thyromegaly. CHEST EXAMINATION: Trachea is central. Symmetrical expansion. Lung de la o clear to auscultation and percussion. CARDIAC: Normal S1, S2 with no gallops. No murmurs ABDOMEN: Soft. Bowel sounds normal. No organomegaly. No abdominal bruits. Extremities: reveal no edema. No clubbing or cyanosis Neurologically awake, alert, oriented x3 with well-coordinated movements. No focal deficits noted Skin: No rash or skin lesions. Psychiatric: Coperative. Nonsuicidal Musculoskeletal: Left knee surgical site bandaged and wound VAC in place. - Labs CBC & Chem 7: 10/15/23 05:53 10/14/23 07:10 Labs: Abnormal Lab Results - Last 24 Hours (Table) 10/13/23 Range/Units 06:01 WBC 11.59 H (4.50-10.00) X 10*3/uL RBC 3.39 L (4.10-5.20) X 10*6/uL Hgb 10.8 L (12.0-15.0) g/dL Hct 32.9 L (37.2-46.3) % MCV 97.1 H (80.0-97.0) FL Immature Gran # 0.09 H (0.00-0.04) X 10*3/uL Neutrophils # 9.64 H (1.80-7.70) X 10*3/uL Lymphocytes # 0.73 L (0.90-5.00) X 10*3/uL Monocytes # 1.10 H (0.20-1.00) X 10*3/uL Eosinophils # 0.01 L (0.04-0.35) X 10*3/uL Assessment and Plan Assessment: Acute transverse fracture through distal femoral metaphysis just above the metallic process. Status post revision left total knee and wound VAC placement. Postoperative day 1 Acute comminuted fracture through the proximal fibular neck. Suprapatellar joint effusion Status post mechanical fall Leukocytosis likely postsurgical inflammation. Vitamin B12 deficiency Hypovolemic hyponatremia. Improved Prior history of smoking History of left total knee arthroplasty DVT prophylaxis GI prophylaxis as per primary team Plan: Patient will be continued on pain management, bowel regimen and encourage incentive spirometry. Continue gentle IV hydration and follow-up repeat BMP. Continue with pain management and bowel regimen. Continue with vitamin B12 supplementation. Follow-up CBC and BMP. Will continue to follow closely and further recommendations based on the clinical course. Time with Patient: Greater than 30
--- NOTE | 2023-10-16 00:39 | P.PN ---
Subjective Progress Note Date: 10/14/23 Patient is a 83-year-old female without significant past medical history except prior history of smoking presents to ER with complaints of fall and left ankle injury. Patient states that around 11 AM she was getting up from the chair at the dining table and got caught up in the runner rug and fell on her left side. Patient was wearing old shoes and believes they not have good drip. She thinks she twisted her leg and having swelling of the left ankle and knee. She has been having ambulation and flexion of the knee. Denies any recent illnesses or sick contacts. No recent travel. No nausea vomiting abdominal pain or diarrhea. Denies any prior history of coronary artery disease or prior history of stroke. X-ray of the knee showed total knee arthroplasty is noted to be in place. There is fracture of the distal left femoral diaphysis metaphyseal region. There is also fracture noted to involve the proximal fibular neck with mild comminution suggested. X-ray of the pelvis showed no acute fracture or dislocation. X-ray of the ankle showed no evidence for acute fracture. CT of the knee showed metallic hardware from total knee arthroplasty is identified causing streak artifact making evaluation suboptimal. Acute transverse fracture through the distal femoral metaphysis just above the met abolic process with posterior displacement of the distal fracture fragment. There is moderate-sized suprapatellar joint effusion with fat fluid level. There is a acute comminuted fracture through the proximal fibular neck. Adjacent TBI is intact. Laboratory data showed sodium 136 potassium 3.9 chloride 108, bicarb 26 BUN 14 and creatinine 0.76 and blood sugar 158. Albumin 3.3 and TSH 0.71 5 10/12/2023 Patient is currently lying in the bed. Awake alert and oriented. Complains of left lower extremity pain. Otherwise patient is scheduled for surgery today. No complaints of nausea or vomiting. No cough or sputum production. Laboratory data showed sodium 139 potassium 4.2 chloride 105 bicarb is 23.0 BUN 10.1 and creatinine 0.7 and blood sugar 147. B12 201 and TSH within normal limits. Patient was started on B12 supplementation. 10/13/2023 Patient is s/p surgery postoperative day 1 Status post left revision total knee arthroplasty and application of negative pressure incision wound VAC. Patient is lying in the bed. Complains of left leg pain. No numbness or tingling. No nausea or vomiting. No cough or sputum production. Laboratory data showed WBC 11.5 hemoglobin 10.8 and platelets 189 Other laboratory reviewed. 10/14/2023 Patient is resting in bed. Awake alert and oriented x 3. Left knee pain is better. No cough or sputum production. No headache or dizziness or light headedness. PT OT follow-up and possible rehab transfer. Laboratory data showed sodium 132 potassium 3.9 chloride 105 bicarb is 27 BUN 10 and creatinine 0.54 blood sugar 130. No complaints of chest pain or shortness of breath. Tolerating oral diet. Patient did not have bowel movement today. Current medications reviewed. Objective - Vital Signs Vital signs: Vital Signs Temp 98.5 F 10/14/23 19:54 Pulse 93 10/14/23 19:54 Resp 18 10/14/23 19:54 BP 153/82 10/14/23 19:54 Pulse Ox 93 L 10/14/23 19:54 FiO2 Intake & Output 10/14/23 10/14/23 10/15/23 06:59 18:59 06:59 Output Total 475 2300 Balance -475 -2300 Output: Urine 475 2300 Other: Voiding Method Indwelling Catheter Indwelling Catheter - Exam PHYSICAL EXAMINATION: Patient is lying in the bed comfortably, no acute distress, awake alert and oriented.. HEENT: Normocephalic. Neck is supple. Pupils reactive. Nostrils clear. Oral cavity is moist. Neck reveals no JVD, carotid bruits, or thyromegaly. CHEST EXAMINATION: Trachea is central. Symmetrical expansion. Lung de la o clear to auscultation and percussion. CARDIAC: Normal S1, S2 with no gallops. No murmurs ABDOMEN: Soft. Bowel sounds normal. No organomegaly. No abdominal bruits. Extremities: reveal no edema. No clubbing or cyanosis Neurologically awake, alert, oriented x3 with well-coordinated movements. No focal deficits noted Skin: No rash or skin lesions. Psychiatric: Coperative. Nonsuicidal Musculoskeletal: Left knee surgical site bandaged and wound VAC in place. - Labs CBC & Chem 7: 10/15/23 05:53 10/14/23 07:10 Labs: Abnormal Lab Results - Last 24 Hours (Table) 10/14/23 Range/Units 07:10 Sodium 132 L (137-145) mmol/L Glucose 130 H (74-99) mg/dL Assessment and Plan Assessment: Acute transverse fracture through distal femoral metaphysis just above the metal lic process. Status post revision left total knee and wound VAC placement. Postoperative day 2 Acute comminuted fracture through the proximal fibular neck. Suprapatellar joint effusion Status post mechanical fall Leukocytosis likely postsurgical inflammation. Vitamin B12 deficiency Hypovolemic hyponatremia. Improved Prior history of smoking History of left total knee arthroplasty DVT prophylaxis currently on aspirin twice daily Plan: Patient will be continued on pain management, bowel regimen and encourage incentive spirometry. Continue gentle IV hydration and follow-up repeat BMP. Continue with pain management and bowel regimen. Continue with vitamin B12 supplementation. Follow-up CBC and BMP. Will continue to follow closely and further recommendations based on the clinical course. Time with Patient: Greater than 30
--- NOTE | 2023-10-16 00:43 | P.PN ---
Subjective Progress Note Date: 10/15/23 Patient is a 83-year-old female without significant past medical history except prior history of smoking presents to ER with complaints of fall and left ankle injury. Patient states that around 11 AM she was getting up from the chair at the dining table and got caught up in the runner rug and fell on her left side. Patient was wearing old shoes and believes they not have good drip. She thinks she twisted her leg and having swelling of the left ankle and knee. She has been having ambulation and flexion of the knee. Denies any recent illnesses or sick contacts. No recent travel. No nausea vomiting abdominal pain or diarrhea. Denies any prior history of coronary artery disease or prior history of stroke. X-ray of the knee showed total knee arthroplasty is noted to be in place. There is fracture of the distal left femoral diaphysis metaphyseal region. There is also fracture noted to involve the proximal fibular neck with mild comminution suggested. X-ray of the pelvis showed no acute fracture or dislocation. X-ray of the ankle showed no evidence for acute fracture. CT of the knee showed metallic hardware from total knee arthroplasty is identified causing streak artifact making evaluation suboptimal. Acute transverse fracture through the distal femoral metaphysis just above the met abolic process with posterior displacement of the distal fracture fragment. There is moderate-sized suprapatellar joint effusion with fat fluid level. There is a acute comminuted fracture through the proximal fibular neck. Adjacent TBI is intact. Laboratory data showed sodium 136 potassium 3.9 chloride 108, bicarb 26 BUN 14 and creatinine 0.76 and blood sugar 158. Albumin 3.3 and TSH 0.71 5 10/12/2023 Patient is currently lying in the bed. Awake alert and oriented. Complains of left lower extremity pain. Otherwise patient is scheduled for surgery today. No complaints of nausea or vomiting. No cough or sputum production. Laboratory data showed sodium 139 potassium 4.2 chloride 105 bicarb is 23.0 BUN 10.1 and creatinine 0.7 and blood sugar 147. B12 201 and TSH within normal limits. Patient was started on B12 supplementation. 10/13/2023 Patient is s/p surgery postoperative day 1 Status post left revision total knee arthroplasty and application of negative pressure incision wound VAC. Patient is lying in the bed. Complains of left leg pain. No numbness or tingling. No nausea or vomiting. No cough or sputum production. Laboratory data showed WBC 11.5 hemoglobin 10.8 and platelets 189 Other laboratory reviewed. 10/14/2023 Patient is resting in bed. Awake alert and oriented x 3. Left knee pain is better. No cough or sputum production. No headache or dizziness or light headedness. PT OT follow-up and possible rehab transfer. Laboratory data showed sodium 132 potassium 3.9 chloride 105 bicarb is 27 BUN 10 and creatinine 0.54 blood sugar 130. No complaints of chest pain or shortness of breath. Tolerating oral diet. Patient did not have bowel movement today. 10/15/2023 Patient is resting in bed. Awake alert and oriented x 3. Left knee pain is much improved. No complaints of chest pain or shortness of breath. No cough or sputum production. Leukocytosis normalized. Otherwise patient did not have any bowel meant for the last few days. Continue on stool softeners. Patient has been afebrile. PT OT follow-up tomorrow. Laboratory data showed WBC 7.1 hemoglobin 10.2 and platelets 210. Current medications reviewed. Objective - Vital Signs Vital signs: Vital Signs Temp 97.9 F 10/15/23 07:07 Pulse 93 10/15/23 08:00 Resp 18 10/15/23 08:00 BP 150/78 10/15/23 07:07 Pulse Ox 93 L 10/15/23 07:07 FiO2 Intake & Output 10/14/23 10/15/23 10/15/23 18:59 06:59 18:59 Output Total 2300 1750 Balance -2300 -1750 Output: Urine 2300 1750 Other: Voiding Method Indwelling Catheter Indwelling Catheter Indwelling Catheter - Exam PHYSICAL EXAMINATION: Patient is lying in the bed comfortably, no acute distress, awake alert and oriented.. HEENT: Normocephalic. Neck is supple. Pupils reactive. Nostrils clear. Oral cavity is moist. Neck reveals no JVD, carotid bruits, or thyromegaly. CHEST EXAMINATION: Trachea is central. Symmetrical expansion. Lung de la o clear to auscultation and percussion. CARDIAC: Normal S1, S2 with no gallops. No murmurs ABDOMEN: Soft. Bowel sounds normal. No organomegaly. No abdominal bruits. Extremities: reveal no edema. No clubbing or cyanosis Neurologically awake, alert, oriented x3 with well-coordinated movements. No focal deficits noted Skin: No rash or skin lesions. Psychiatric: Coperative. Nonsuicidal Musculoskeletal: Left knee surgical site bandaged and wound VAC in place. - Labs CBC & Chem 7: 10/15/23 05:53 10/14/23 07:10 Labs: Abnormal Lab Results - Last 24 Hours (Table) 10/15/23 Range/Units 05:53 RBC 3.30 L (4.10-5.20) X 10*6/uL Hgb 10.2 L (12.0-15.0) g/dL Hct 31.7 L (37.2-46.3) % Lymphocytes # 0.83 L (0.90-5.00) X 10*3/uL Assessment and Plan Assessment: Acute transverse fracture through distal femoral metaphysis just above the metallic process. Status post revision left total knee and wound VAC placement. Postoperative day 3 Acute comminuted fracture through the proximal fibular neck. Suprapatellar joint effusion Status post mechanical fall Leukocytosis likely postsurgical inflammation. Resolved now. Vitamin B12 deficiency Hypovolemic hyponatremia. Improved Prior history of smoking History of left total knee arthroplasty DVT prophylaxis currently on aspirin twice daily Plan: Patient will be continued on pain management, bowel regimen and encourage incentive spirometry. Encourage oral intake.. Continue with pain management and bowel regimen. Continue with vitamin B12 supplementation. Hemoglobin is fairly stable. Leukocytosis normalized. PT OT follow-up and possible rehab transfer. Will continue to follow closely and further recommendations based on the clinical course. Time with Patient: Greater than 30
[2023-10-16] MEDS: SODIUM CHLORIDE 0.9% 1,000 ML IV SCH (06:36)
[2023-10-16 07:16] VITALS: BP 148/80; PULSE 89; RESP 17; TEMP 97.6
--- NOTE | 2023-10-16 08:38 | P.DS ---
Providers Date of admission: 10/11/23 15:56 Attending physician: Moris Vargas Consults: 10/11/23 15:38 Consult Physician Urgent Consulting Provider: Margo Fowler Consult Reason/Comments: medical clearance Do you want consulting provider notified?: Yes 10/13/23 12:29 Consult Physician Routine Consulting Provider: Jenaro Leyva Consult Reason/Comments: evaluate for inpatient rehab Do you want consulting provider notified?: Yes Primary care physician: Stated None Hospital Course: The patient is a very pleasant 83 year old female who was admitted with a non- repairable periprosthetic distal femur fracture after a fall. She was taken for DFR last . Following surgery she had 2 doses of ancef and was started on doxycycline. She was transitioned from IV to oral pain meds. IM managed her medical issues. She worked with PT. She had discharge arranged and was utlimately cleared for discharge to rehab. Patient Condition at Discharge: Stable Plan - Discharge Summary Discharge Rx Participant: No New Discharge Prescriptions: New RX: Aspirin 81 mg PO BID #60 tab HYDROcodone/APAP 5-325MG [Gary 5-325] 1 - 2 tab PO Q6HR PRN #32 tab PRN Reason: Pain RX: Doxycycline Monohydrate 100 mg PO BID #84 cap Docusate [Colace] 100 mg PO BID #60 capsule RX: Omeprazole [PriLOSEC] 40 mg PO DAILY #30 cap No Action Cholecalciferol (Vitamin D3) [Vitamin D3 (50 Mcg = 2000 Iu)] 50 mcg PO DAILY Discharge Medication List Cholecalciferol (Vitamin D3) [Vitamin D3 (50 Mcg = 2000 Iu)] 50 mcg PO DAILY 10/11/23 [History] Docusate [Colace] 100 mg PO BID #60 capsule 10/15/23 [Rx] HYDROcodone/APAP 5-325MG [Gary 5-325] 1 - 2 tab PO Q6HR PRN #32 tab 10/15/23 [Rx] RX: Aspirin 81 mg PO BID #60 tab 10/15/23 [Rx] RX: Doxycycline Monohydrate 100 mg PO BID #84 cap 10/15/23 [Rx] RX: Omeprazole [PriLOSEC] 40 mg PO DAILY #30 cap 10/15/23 [Rx] Follow up Appointment(s)/Referral(s): None,Stated [Primary Care Provider] - 1-2 days Moris Vargas MD [Medical Doctor] - 2 Weeks Activity/Diet/Wound Care/Special Instructions: 1. Weight-bear as tolerated on your operative extremity unless instructed otherwise. Use a walker or other assistive device to ambulate. 2. Leave surgical dressing in place. If your dressing becomes saturated with blood, there is drainage, or the dressing becomes loose please contact the office. 3. It is okay to shower with your surgical dressing, but do not submerge in water (no hot tubs, bath's, swimming etc.) 4. Make sure to take her blood clot prevention medication as prescribed (aspirin, Eliquis, Xarelto, and Plavix are commonly prescribed medications for blood clot prevention) 5. While taking Gary or Percocet for pain make sure you're taking a stool softener (Colace) and drink lots of water. 6. Keep all follow-up appointments as scheduled. You will usually be seen in 1-2 weeks following surgery. 7. Please contact the office with any questions or concerns [phone] Discharge Disposition: TRANSFER TO SNF/ECF
[2023-10-16 08:40] LABS: Blood Urea Nitrogen 12.3 mg/dL (9.0-27.0); Calcium 8.3 mg/dL (8.7-10.3); Carbon Dioxide 25.7 mmol/L (21.6-31.8); Chloride 103 mmol/L (96-109); Glucose 101 mg/dL (70-110); Potassium 3.6 mmol/L (3.5-5.5); Sodium 139 mmol/L (135-145)
== END 2023-10-16 12:30 | DRG 467 ==
LOC: EC 10:20 → 4SSUR 15:56
PROVIDERS: ADMIT Orthopaedic Surgery; ATTEND Orthopaedic Surgery
PROC: 0SPD0JZ Removal of Synthetic Substitute from Left Knee Joint, Open Approach (ICD-10-PCS; 2023-10-12)
PROC: 0SRD0J9 Replacement of Left Knee Joint with Synthetic Substitute, Cemented, Open Approach (ICD-10-PCS; principal; 2023-10-12 15:05)
DX: S79.192A Other physeal fracture of lower end of left femur, initial encounter for closed fracture (principal); E87.1 Hypo-osmolality and hyponatremia; M97.12XA Periprosthetic fracture around internal prosthetic left knee joint, initial encounter; M25.062 Hemarthrosis, left knee; S82.832A Other fracture of upper and lower end of left fibula, initial encounter for closed fracture; D72.828 Other elevated white blood cell count; M81.0 Age-related osteoporosis without current pathological fracture; M25.472 Effusion, left ankle; E86.1 Hypovolemia; G89.18 Other acute postprocedural pain; E53.8 Deficiency of other specified B group vitamins; W01.0XXA Fall on same level from slipping, tripping and stumbling without subsequent striking against object, initial encounter; Z87.891 Personal history of nicotine dependence
CPT/HCPCS: 73502; 80048; 80053; 82607; 83036; 84443; 85025; 85610; 85730; 96361; 96372; 96374; 96375; 99285